=== PATIENT | female | born 1945 | race Caucasian/White ===

== ENCOUNTER 2017-12-05 18:32 | Emergency (ER) | payer MEDICARE, OTHER ==
[~2017-12-05] VITALS: Ht 170.2 cm; Wt 66.7 kg
[~2017-12-05 18:32] MED LIST: ACETAMINOPHEN-1 EAC1 PO; ACYCLOVIR200 MG PO; ATENOLOL50 MG PO; BUSPIRONE HCL5 MG PO; CHANTIX1 EACH PO; CLONAZEPAM2 MG PO; DOLOPHINE HCL10 MG PO; LASIX20 MG PO; LISINOPRIL-HCT1 EACH PO; LISINOPRIL20 MG PO; OMEPRAZOLE20 MG PO; OXYBUTYNIN CHLOR5 MG PO; POTASSIUM CHLO10 MEQ PO; SYNTHROID125 MCG PO
--- NOTE | 2017-12-06 15:27 | EKG ---
[facility] [address] [place] [address] Signed Poor data quality, interpretation may be adversely affected Sinus bradycardia with 1st degree AV block Otherwise normal ECG No previous ECGs available Confirmed by MINNIE PRYOR MD ([id number]) on 12/06/2017 3:27:50 PM Electronically Signed By: MINNIE PRYOR MD 12/06/17 1527 PATIENT NAME: BARON MENDEZ Electrocardiogram DATE OF : 49 PHYSICIAN: MINNIE PRYOR MD REPORT #: [id number] REPORT IS CONFIDENTIAL AND NOT TO BE RELEASED WITHOUT AUTHORIZATION
== END 2017-12-06 00:18 | disposition short-term general hospital (02) ==
LOC: ED 18:32
PROC: 0T9B70Z Drainage of Bladder with Drainage Device, Via Natural or Artificial Opening (ICD-10-PCS; principal; 2017-12-05)
DX: M97.8XXA Periprosthetic fracture around other internal prosthetic joint, initial encounter (principal); I10 Essential (primary) hypertension; F17.200 Nicotine dependence, unspecified, uncomplicated; Z79.899 Other long term (current) drug therapy; W17.89XA Other fall from one level to another, initial encounter
CPT/HCPCS: 51702; 73552; 73560; 73620; 80053; 81001; 85025; 93005; 93010; 96374; 99285; G0480; J3010

== ENCOUNTER 2019-03-07 10:35 | Emergency (ER) | payer MEDICARE, OTHER ==
[~2019-03-07] VITALS: Ht 170.2 cm; Wt 72.6 kg
--- OUTSIDE RECORDS SUMMARY | ~2019-03-07 | XMS | Clinical Summary ---
Demographics + + + | Address | [address] | | | [place] [address] | + + + | Home Phone | | + + + | Preferred Language | Unknown | + + + | Marital Status | Unknown | + + + | Sikhism Affiliation | Unknown | + + + | Race | Unknown | + + + | Ethnic Group | Unknown | + + + Author + + + | Author | [facility] [employer] (Historical as of | | | 12-30-18) | + + + | Organization | [facility] [employer] (Historical as of | | | 12-30-18) | + + + | Address | Unknown | + + + | Phone | Unavailable | + + + Support + + +---------+ + | Name | Relationship | Address | Phone | + + +---------+ + | Tonie Martinez | TIM | Unknown | | + + +---------+ + | Detailed,Message | ECON | Unknown | | + + +---------+ + Care Team Providers + +------+ + | Care Preformer [employer] Name | Role | Phone | + +------+ + | Tyler Guillen MD | PP | | + +------+ + Allergies + + + + + + | Active Allergy | Reactions | Severity | Noted | Comments | | | | | Date | | + + + + + + | Bee Venom | Hives, Swelling | High | 12/10/19 | | | | | | 16 | | + + + + + + | Tetracycline | Nausea and Vomiting | Low | 12/10/19 | | | | | | 16 | | + + + + + + Current Medications + + +-------+---------+------+------+-------+ | Prescription | Sig. | Disp. | Refills | Star | End | Statu | | | | | | t | Date | s | | | | | | Date | | | + + +-------+---------+------+------+-------+ | loperamide | Take 2 mg by mouth 4 | | | | | Activ | | (IMODIUM A-D) 2 MG | (four) times daily | | | | | e | | tablet | as needed for | | | | | | | | Diarrhea. | | | | | | + + +-------+---------+------+------+-------+ | furosemide (LASIX) | Take 20 mg by mouth | | | | | Activ | | 20 MG tablet | daily as needed. | | | | | e | + + +-------+---------+------+------+-------+ | | Take 1 tablet by | | | | | Activ | | HYDROcodone-acetamin | mouth every 6 (six) | | | | | e | | ophen (NORCO) 10-325 | hours as needed for | | | | | | | MG per tablet | Pain. | | | | | | + + +-------+---------+------+------+-------+ | levothyroxine | Take 150 mcg by | | | | | Activ | | (SYNTHROID) 150 MCG | mouth every morning | | | | | e | | tablet | before breakfast. | | | | | | + + +-------+---------+------+------+-------+ | | Take 1 tablet by | | | | | Activ | | lisinopril-hydrochlo | mouth daily. | | | | | e | | rothiazide | | | | | | | | (ZESTORETIC) 20-12.5 | | | | | | | | MG per tablet | | | | | | | + + +-------+---------+------+------+-------+ | oxybutynin | Take 10 mg by mouth | | | | | Activ | | (DITROPAN-XL) 10 MG | 2 (two) times daily. | | | | | e | | 24 hr tablet | | | | | | | + + +-------+---------+------+------+-------+ | oxycodone (OXY-IR) | Take 5 mg by mouth | | | | | Activ | | 5 MG capsule | every 8 (eight) | | | | | e | | | hours as needed. | | | | | | + + +-------+---------+------+------+-------+ | omeprazole | Take 20 mg by mouth | | | | | Activ | | (PRILOSEC) 20 MG | every morning before | | | | | e | | capsule | breakfast. | | | | | | + + +-------+---------+------+------+-------+ | traMADol (ULTRAM) | Take 50 mg by mouth | | | | | Activ | | 50 MG tablet | every 8 (eight) | | | | | e | | | hours as needed for | | | | | | | | Pain. | | | | | | + + +-------+---------+------+------+-------+ | clonazePAM | Take 1 mg by mouth 3 | | | | | Activ | | (KLONOPIN) 1 MG | (three) times daily | | | | | e | | tablet | as needed for | | | | | | | | Anxiety. | | | | | | + + +-------+---------+------+------+-------+ | EPINEPHrine 0.3 | Inject 0.3 mg into | | | | | Activ | | MG/0.3ML | the muscle as | | | | | e | | auto-injector | needed. | | | | | | + + +-------+---------+------+------+-------+ | Potassium Chloride | Take 1 tablet by | | | | | Activ | | (KCL-20 PO) | mouth daily. | | | | | e | + + +-------+---------+------+------+-------+ | buprenorphine | Place 2 mg under the | | | | | Activ | | (SUBUTEX) 2 MG SUBL | tongue every 6 | | | | | e | | | (six) hours as | | | | | | | | needed. | | | | | | + + +-------+---------+------+------+-------+ | ondansetron | Take 8 mg by mouth | | | | | Activ | | (ZOFRAN ODT) 8 MG | every 8 (eight) | | | | | e | | disintegrating | hours as needed for | | | | | | | tablet | Nausea or Vomiting. | | | | | | + + +-------+---------+------+------+-------+ | varenicline | Take by mouth 2 | | | | | Activ | | (CHANTIX STARTING | (two) times daily. | | | | | e | | MONTH CECIL) 0.5 MG X | Take one 0.5mg | | | | | | | 11 & 1 MG X 42 | tablet by mouth once | | | | | | | tablet | daily for 3 days, | | | | | | | | then increase to one | | | | | | | | 0.5mg tablet twice | | | | | | | | daily for 3 days, | | | | | | | | then increase to one | | | | | | | | 1mg tablet twice | | | | | | | | daily. | | | | | | + + +-------+---------+------+------+-------+ Active Problems + + + | Problem | Noted Date | + + + | Precordial pain | 12/10/2015 | + + + + + | Last Assessment & Plan: Chest pain. 70yo WF, with | | chest pain, approximately 2 years duration. She describes this | | as a severe retrosternal discomfort, usually lasting around 5 | | minutes, associated shortness of breath and palpitations, but no | | nausea or diaphoresis. Increasing in frequency and severity, | | random in occurrence. She is modestly active, and physical | | activity is not consistent aggravating or symptoms. She has | | severe DJD, chronic pain issues on narcotics. Chronic back pain, | | distant right knee replacement, recent left knee replacement. | | She is going through rehabilitation, and plates with the | | assistance of a cane. Her risk factors include a history of | | hypertension and tobacco use. There is no significant family | | history of heart disease, diabetes, or hyperlipidemia. There is | | no prior history of myocardial infarction, congestive heart | | failure, congenital heart disease, or rheumatic heart disease. | | She is single, lives in the boarding house. Recent labs | | reviewed. Today's ECG is benign. She is not able to walk on a | | treadmill, we've requested a pharmacological nuclear perfusion | | study to assess her chest pain.ECG, 12/10/2015: sinus bradycardia, | | 52bpm, otherwise NML ECG. | + + + + + | HTN (hypertension) | 12/10/2015 | + + + + + | Last Assessment & Plan: Hypertension, controlled, continue | | current meds at current dose (lisinopril HCT). Labs reviewed | | with patient.Lab, 12/09/2015: T Chol: 111, LDL-Chol: 46, HDL-Chol: | | 25, Tri Liver enzymes NML, K: | | 3.4, BUN/Cr: 24/1.4 (GFR 39), glu: 106 | | TSH: 0.293, free T3: 4.08, WBC: 5.5, H/H: 12.0/35.5, plt: 161, | | ESR: 20 | + + + + + | GERD (gastroesophageal reflux disease) | 12/10/2015 | + + + + + | Last Assessment & Plan: Hx GERD, managed by PCP. | + + + + + | Osteoarthritis | 12/10/2015 | + + + + + | Last Assessment & Plan: Severe DJD, distant history right | | knee replacement, recent left knee replacement. Also history of | | chronic pain issues. | + + +--------+ + | Smoker | 12/10/2015 | +--------+ + + + | Last Assessment & Plan: Long-time smoker, currently a one | | third pack of cigars per day, has tried multiple times to stop | | smoking, but continues to smoke. | + + Family History + + +------+ + | Medical History | Relation | Name | Comments | + + +------+ + | Diabetes type II | Maternal | | | | | Grandmoth | | | | | er | | | + + +------+ + | Heart disease | Mother | | | + + +------+ + | Hypertension | Mother | | | + + +------+ + | Cancer | Sister | | | + + +------+ + | Diabetes type II | Sister | | | + + +------+ + | Heart disease | Sister | | | + + +------+ + | Hypertension | Sister | | | + + +------+ + + +------+ + + | Relation | Name | Status | Comments | + +------+ + + | Father | | | unknown status | | | | (Age | | | | | 81) | | + +------+ + + | Maternal Grandfather | | | unknown status | | | | (Age | | | | | 83) | | + +------+ + + | Maternal Grandmother | | | colitis, DMII | + +------+ + + | Mother | | | heart failure,HTN | | | | (Age | | | | | 83) | | + +------+ + + | Sister | | | pancreatis cancer, DMII,HYperlipidemia | | | | (Age | | | | | 59) | | + +------+ + + Social History + + + +--------+ + | Tobacco Use | Types | Packs/Day | Years | Date | | | | | Used | | + + + +--------+ + | Current Every Day | Cigarettes | | | Started: 05/16/1955 | | Smoker | | | | | + + + +--------+ + + +---+---+---+ | Smokeless Tobacco: | | | | | Never Used | | | | + +---+---+---+ + + +---------+ + | Alcohol Use | Drinks/We | oz/Week | Comments | | | ek | | | + + +---------+ + | No | 0 | 0.0 | | | | Standard | | | | | drinks or | | | | | | | | | | equivalen | | | | | t | | | + + +---------+ + + + + | Sex Assigned at | Date Recorded | | | | + + + | Not on file | | + + + Last Filed Vital Signs + + + + | Vital Sign | Reading | Time Taken | + + + + | Blood Pressure | 130/68 | 12/10/2015 3:18 PM PDT | + + + + | Pulse | 52 | 12/10/2015 3:18 PM PDT | + + + + | Temperature | - | - | + + + + | Respiratory Rate | 17 | 12/10/2015 3:18 PM PDT | + + + + | Oxygen Saturation | 98% | 12/10/2015 3:18 PM PDT | + + + + | Inhaled Oxygen | - | - | | Concentration | | | + + + + | Weight | 69.1 kg (152 lb 4.8 | 12/10/2015 3:18 PM PDT | | | oz) | | + + + + | Height | 170.2 cm (5' 7") | 12/10/2015 3:18 PM PDT | + + + + | Body Mass Index | 23.85 | 12/10/2015 3:18 PM PDT | + + + + Plan of Treatment + + + + + | Health Maintenance | Due Date | Last Done | Comments | + + + + + | Vaccine: Zoster (1 | | | | | of 2) | 8 | | | + + + + + | Vaccine: | | 07/18/2006 | | | Dtap/Tdap/Td (1 - | 7 | | | | Tdap) | | | | + + + + + | DEXA SCAN SCREENING | | | | | | 3 | | | + + + + + | Vaccine: | | | | | Pneumococcal 65+ | 3 | | | | Low/Medium Risk (1 | | | | | of 2 - PCV13) | | | | + + + + + | Vaccine: Influenza | | | | | (#1) | 9 | | | + + + + + Results Not on filefrom Last 3 Months Insurance + +--------+ +--------+-------+ + | Payer | Benefi | Subscriber | Type | Phone | Address | | | t Plan | ID | | | | | | / | | | | | | | Group | | | | | + +--------+ +--------+-------+ + | [place] [employer] | [place]-FAM | [id number] | Medica | | | | FAMILY | ELY | | re | | | | | CARE | | | | | + +--------+ +--------+-------+ + | MEDICAID | MEDICA | [id number] | | | [address] | | | ID | | | | [place] | | | [place] | | | | [address] | + +--------+ +--------+-------+ + + +--------+ +--------+ + + | Guarantor Name | Accoun | Relation to | Date | Phone | Billing Address | | | t Type | Patient | of | | | | | | | | | | + +--------+ +--------+ + + | BARON CHRISTENSEN | Person | Self [birth year] Home: | [address] | | | al/Fam | | 1946 | [phone] [place] [address] | | | ely | | | [phone] | | + +--------+ +--------+ + +
--- OUTSIDE RECORDS SUMMARY | ~2019-03-07 | XMS | Clinical Summary ---
Demographics + + + | Address | [address] | | | [place] [address] | + + + | Home Phone | | + + + | Preferred Language | Unknown | + + + | Marital Status | | + + + | Orthodoxy Affiliation | Unknown | + + + | Race | Unknown | + + + | Ethnic Group | Unknown | + + + Author + + + | Author | [facility] | | | and [place] | + + + | Organization | [facility] | | | and [place] | + + + | Address | Unknown | + + + | Phone | Unavailable | + + + Support + + +---------+ + | Name | Relationship | Address | Phone | + + +---------+ + | Tonie Martinez | TIM | Unknown | | + + +---------+ + | CmChristy | ECON | Unknown | | + + +---------+ + Care Team Providers + +------+ + | Care Brigadier Name | Role | Phone | + +------+ + | Tyler Guillen MD | PCP | | + +------+ + Allergies + + + + + + | Active Allergy | Reactions | Severity | Noted | Comments | | | | | Date | | + + + + + + | Bee Venom | Anaphylaxis | High | 11/28/19 | | | | | | 15 | | + + + + + + | Tetracyclines & | Nausea And Vomiting | Low | 08/21/19 | | | Related | | | 16 | | + + + + + + Medications + + + +---------+------+------+-------+ | Medication | Sig | Dispensed | Refills | Star | End | Statu | | | | | | t | Date | s | | | | | | Date | | | + + + +---------+------+------+-------+ | clonazePAM | 1 mg 3 times daily | | 0 | 05/0 | | Activ | | (KLONOPIN) 1 mg | as needed. Once in | | | 12/02 | | e | | tablet | the morning and once | | | 15 | | | | | in the evening | | | | | | + + + +---------+------+------+-------+ | levothyroxine | 150 mcg. | | 0 | 04/1 | | Activ | | (SYNTHROID, | | | | 9/20 | | e | | LEVOTHROID) 125 mcg | | | | 15 | | | | tablet | | | | | | | + + + +---------+------+------+-------+ | | 1 tablet 2 times | | 1 | 04/2 | | Activ | | lisinopril-hydrochlo | daily. | | | 20 | | e | | rothiazide | | | | 15 | | | | (PRINZIDE,ZESTORETIC | | | | | | | | ) 20-12.5 MG per | | | | | | | | tablet | | | | | | | + + + +---------+------+------+-------+ | omeprazole | Take 20 mg by mouth | | 0 | 05/0 | | Activ | | (PRILOSEC) 20 mg | Daily. | | | 1/20 | | e | | capsule | | | | 15 | | | + + + +---------+------+------+-------+ | oxybutynin | Take 10 mg by mouth | | 0 | 05/0 | | Activ | | (DITROPAN) 5 mg | 2 times daily. | | | 7/20 | | e | | tablet | | | | 15 | | | + + + +---------+------+------+-------+ | docusate sodium | Take 200 mg by mouth | 60 | 0 | 04/1 | | Activ | | (COLACE) 100 MG | 2 times daily. | capsule | | 1/20 | | e | | capsule | | | | 16 | | | + + + +---------+------+------+-------+ | clonazePAM | Take 1 tablet by | 60 | 0 | 04/1 | | Activ | | (KLONOPIN) 1 mg | mouth 3 times daily | tablet | | 1/20 | | e | | tablet | as needed. | | | 16 | | | + + + +---------+------+------+-------+ | traMADol (ULTRAM) | Take 1 tablet by | 40 | 0 | 06/2 | | Activ | | 50 mg tablet | mouth every 8 hours | tablet | | 0/20 | | e | | | as needed for Pain | | | 16 | | | | | (1-2 tablets). | | | | | | + + + +---------+------+------+-------+ | furosemide (LASIX) | | | 0 | 05/3 | | Activ | | 20 mg tablet | | | | 0/20 | | e | | | | | | 16 | | | + + + +---------+------+------+-------+ | | | | 0 | 06/1 | | Activ | | acetaminophen-codein | | | | 5/20 | | e | | e (TYLENOL #3) | | | | 16 | | | | 300-30 mg per tablet | | | | | | | + + + +---------+------+------+-------+ | oxyCODONE | Take 1 tablet by | 50 | 0 | 07/1 | | Activ | | (ROXICODONE) 5 mg | mouth every 8 hours | tablet | | 8/20 | | e | | tabletIndications: | as needed for Pain. | | | 16 | | | | Left knee pain, | | | | | | | | unspecified | | | | | | | | chronicity, Status | | | | | | | | post total left knee | | | | | | | | replacement | | | | | | | + + + +---------+------+------+-------+ | | Take 1-2 tablets by | 60 | 0 | 11/13 | | Activ | | HYDROcodone-acetamin | mouth 2 times daily. | tablet | | 01/02 | | e | | ophen (NORCO) 10-325 | | | | 16 | | | | mg per | | | | | | | | tabletIndications: | | | | | | | | Left knee pain, | | | | | | | | unspecified | | | | | | | | chronicity, Status | | | | | | | | post total left knee | | | | | | | | replacement | | | | | | | + + + +---------+------+------+-------+ | loperamide | Take 2 mg by mouth. | | 0 | | | Activ | | (IMODIUM A-D) 2 MG | | | | | | e | | tablet | | | | | | | + + + +---------+------+------+-------+ | acyclovir | | | 0 | 03/2 | | Activ | | (ZOVIRAX) 200 mg | | | | 8/20 | | e | | capsule | | | | 17 | | | + + + +---------+------+------+-------+ | buprenorphine | | | 0 | 03/2 | | Activ | | (SUBUTEX) 8 mg SUBL | | | | 9/20 | | e | | | | | | 17 | | | + + + +---------+------+------+-------+ Active Problems + + + | Problem | Noted Date | + + + | Gastroesophageal reflux disease | 12/10/2015 | + + + + + | Overview: Last Assessment & Plan: | | Hx GERD, managed by PCP. | + + + + + | Hypertension | 12/10/2015 | + + + + + | Overview: Last Assessment & Plan: Hypertension, controlled, | | continue current meds at current dose (lisinopril HCT). Labs | | reviewed with patient.Lab, 12/09/2015: T Chol: 111, LDL-Chol: 46, | | HDL-Chol: 25, Tri Liver enzymes | | NML, K: 3.4, BUN/Cr: 24/1.4 (GFR 39), glu: 106 | | TSH: 0.293, free T3: 4.08, WBC: 5.5, H/H: 12.0/35.5, plt: | | 161, ESR: 20 | + + + + + | Chest pain, precordial | 12/10/2015 | + + + + + | Overview: Last Assessment & Plan: Chest pain. 70yo | | WF, with chest pain, approximately 2 years duration. She | | describes this as a severe retrosternal discomfort, usually | | lasting around 5 minutes, associated shortness of breath and | | palpitations, but no nausea or diaphoresis. Increasing in | | frequency and severity, random in occurrence. She is modestly | | active, and physical activity is not consistent aggravating or | | symptoms. She has severe DJD, chronic pain issues on narcotics. | | Chronic back pain, distant right knee replacement, recent left | | knee replacement. She is going through rehabilitation, and | | plates with the assistance of a cane. Her risk factors include a | | history of hypertension and tobacco use. There is no | | significant family history of heart disease, diabetes, or | | hyperlipidemia. There is no prior history of myocardial | | infarction, congestive heart failure, congenital heart disease, | | or rheumatic heart disease. She is single, lives in the boarding | | house. Recent labs reviewed. Today's ECG is benign. She is | | not able to walk on a treadmill, we've requested a | | pharmacological nuclear perfusion study to assess her chest | | pain.ECG, 12/10/2015: sinus bradycardia, 52bpm, otherwise NCL ECG. | + + + + + | Current smoker | 12/10/2015 | + + + + + | Overview: Last Assessment & Plan: Long-time smoker, currently | | a one third pack of cigars per day, has tried multiple times to | | stop smoking, but continues to smoke. | + + + + + | Primary osteoarthritis of left knee | 08/23/2015 | + + + | Drug dependence | 02/16/2006 | + + + + + | Overview: Overview: | | Now In Remission. | | | | IMO Problem List Replacement - 2016_Regulatory_1 | + + + + + | Hepatitis | 02/16/2006 | + + + + + | Overview: Overview: | | Chronic Hepatitis C. | + + + + + | Osteoarthritis | 02/16/2006 | + + + + + | Overview: Last Assessment & Plan: Severe DJD, distant history | | right knee replacement, recent left knee replacement. Also | | history of chronic pain issues.Overview: Degenerative arthritis | | of both knees;status post jacquelyn arthroplasty in both knees.O | | Problem List Replacement - 2016_Regulatory_1 | | | |IMO Problem List Replacement - 2016_Regulatory_1 | + + + + + | Hypoactive thyroid | 09/06/2005 | + + + | Essential (primary) hypertension | 11/09/2004 | + + + Family History + + +------+ + | Medical History | Relation | Name | Comments | + + +------+ + | Diabetes, NIDDM | Maternal | | | | | Grandmoth | | | | | er | | | + + +------+ + | Heart disease | Mother | | | + + +------+ + | Hypertension | Mother | | | + + +------+ + | Cancer | Sister | | | + + +------+ + | Diabetes, NIDDM | Sister | | | + + +------+ + | Heart disease | Sister | | | + + +------+ + | Hypertension | Sister | | | + + +------+ + | Cancer | Sister | | | + + +------+ + | Diabetes | Sister | | | + + [...] DMII | + +------+ + + | Maternal Grandmother | | | | + +------+ + + | Mother | | | heart failure,HTN | | | | (Age | | | | | 83) | | + +------+ + + | Mother | | | | + +------+ + + | Sister | | | pancreatis cancer, DMII,HYperlipidemia | | | | (Age | | | | | 59) | | + +------+ + + | Sister | | | | + +------+ + + | Sister | | | | + +------+ + + Social History + +-------+ +--------+ + | Tobacco Use | Types | Packs/Day | Years | Date | | | | | Used | | + +-------+ +--------+ + | Current Every Day | | 0.5 | | Quit: 04/02/2015 | | Smoker | | | | | + +-------+ +--------+ + + + | Tobacco Cessation: Ready to Quit: No | + + + + +---------+ + | Alcohol Use [...] on file | | + + + + + + + | Job Start Date | Occupation | Industry | + + + + | Not on file | Not on file | Not on file | + + + + + + + + | Travel History | Travel Start | Travel End | + + + + + + | No recent travel history available. | + + Last Filed Vital Signs + + + + | Vital Sign | Reading | Time Taken | + + + + | Blood Pressure | 130/68 | 12/10/2015 1524 PDT | + + + + | Pulse | 52 | 12/10/2015 1524 PDT | + + + + | Temperature | 36.7 C (98 F) | 11/13/2015 1117 PDT | + + + + | Respiratory Rate | 17 | 12/10/20154 PDT | + + + + | Oxygen Saturation | 94% | 08/25/2015 0749 PDT | + + + + | Inhaled Oxygen | - | - | | Concentration | | | + + + + | Weight | 73 kg (161 lb) | 08/16/2016 1345 PDT | + + + + | Height | 170.2 cm (5' 7") | 08/16/2016 1345 PDT | + + + + | Body Mass Index | 25.22 | 08/16/2016 1345 PDT | + + + + Plan of Treatment + + + + + | Health Maintenance | Due Date | Last Done | Comments | + + + + + | Vaccine: Zoster (1 | | | | | of 2) | 8 | | | + + + + + | Breast Cancer | | | | | Screening | 3 | | | + + [...] | | + + + + + Implants + +--------+--------+ +--------+--------+--------+ | Implanted | Type | Area | Manufacture | Device | Shelf | Model | | | | | r | | Expira | / | | | | | | Identi | tion | Serial | | | | | | fier | Date | / Lot | + +--------+--------+ +--------+--------+--------+ | Miko Bone Palacos-R 40gm - | Generi | Left: | GISSEL - | | 07/31/ | 00-111 | | [id number]: Qty: 1 on | c | Knee | ZIMM | | 2020 | 2-140- | | 08/22/2015 by Juan C Arzola | | | | | | 01 / | | MD Yennifer | | | | | | /[id number] | | | | | | | | 446 | + +--------+--------+ +--------+--------+--------+ | Imp Knee Ptela Polyeth 35mm - | Generi | Left: | GISSEL - | | 06/15/ | 42-540 | | [id number]: Qty: 1 | c | Knee | ZIMM | | 2023 | 0-000- | | on 08/22/2015 by Dariusz, | | | | | | 35 / | | Juan C De Oliveira MD | | | | | | /[id number] | | | | | | | | 176 | + +--------+--------+ +--------+--------+--------+ | Imp Knee Stem Femur Nrw Lt | Generi | Left: | GISSEL - | | 04/14/ | 42-502 | | Sz8 - [id number]: | c | Knee | ZIMM | | 2024 | 0-064- | | Qty: 1 on 08/22/2015 by | | | | | | 01 / | | Juan C Arzola MD | | | | | | /[id number] | | | | | | | | 979 | + +--------+--------+ +--------+--------+--------+ | Imp Knee Tib 5deg Lt Sabino - | Generi | Left: | GISSEL - | | 08/13/ | 42-532 | | [id number]: Qty: 1 on | c | Knee | ZIMM | | 6 | 0-071- | | 08/22/2015 by Juan C Arzola | | | | | | 01 / | | MD Yennifer | | | | | | /[id number] | | | | | | | | 199 | + +--------+--------+ +--------+--------+--------+ | Imp Knee Surf Artc L 10 | Generi | Left: | GISSEL - | | 01/13/ | [id number] | | 8-11ab - [id number]: | c | Knee | ZIMM | | 2020 | [id number] | | Qty: 1 on 08/22/2015 by | | | | | | / | | Juan C Arzola MD | | | | | | /[id number] | | | | | | | | 730 | + +--------+--------+ +--------+--------+--------+ | Screw Hex 2.5x25mm - | Screw | Left: | GISSEL - | | 07/13/ | 42-509 | | [id number]: Qty: 1 on | | Knee | ZIMM | | 2025 | - | | 08/22/2015 by Juan C Arzola | | | | | | 25 / | | MD Yennifer | | | | | | /[id number] | | | | | | | | 085 | + +--------+--------+ +--------+--------+--------+ Results Not on filefrom Last 3 Months Insurance + +--------+ +--------+ +---------+--------+ | Payer | Benefi | Subscriber | Effect | Phone | Address | Type | | | t Plan | ID | dustin | | | | | | / | | Dates | | | | | | Group | | | | | | + +--------+ +--------+ +---------+--------+ | MEDICARE | MEDICA | [id number] | 05/16/19 | [phone] | | Medica | | | RE | | 17-Pre | 5 | | re | | | PART A | | sent | | | | | | AND B | | | | | | + +--------+ +--------+ +---------+--------+ | [place]ID [place] | MEDICA | [id number] | | [phone] | | Medica | | | ID | | 014-Pr | 2 | | id | | | [place] | | esent | | | | + +--------+ +--------+ +---------+--------+ + +--------+ +--------+ + + | Guarantor Name | Accoun | Relation to | Date | Phone | Billing Address | | | t Type | Patient | of | | | | | | | | | | + +--------+ +--------+ + + | Sol Christensen | Person | Self | [birth year] | [address] | | [place] | [place] | | 1946 | [phone] | [place] [address] | | | ely | | | 9 (Home) | | + +--------+ +--------+ + + Advance Directives Patient has advance care planning documents, and code status on file. For more information, please contact:[facility] [place] [address] + + + + + | Code Status | Date | Date | Comments | | | Activated | Inactivated | | + + + + + | Full Code | 08/22/2015 | 08/25/2015 | | | | 13:14 | 16:10 | | + + + + +
--- OUTSIDE RECORDS SUMMARY | ~2019-03-07 | XMS | Clinical Summary ---
Demographics + + + | Address | [address] | | | [place] [address] | + + + | Home Phone | | + + + | Preferred Language | Unknown | + + + | Marital Status | | + + + | Moravian Affiliation | Unknown | + + + | Race | Unknown | + + + | Ethnic Group | Unknown | + + + Author + + + | Author | [facility] | | | and [place] | + + + | Organization | [facility] | | | and [place] | + + + | Address | Unknown | + + + | Phone | Unavailable | + + + Support + + +---------+ + | Name | Relationship | Address | Phone | + + +---------+ + | Tonie Martniez | TIM | Unknown | | + + +---------+ + | CmChristy | ECON | Unknown | | + + +---------+ + Care Team Providers + +------+ + | Care Control Equipment Electrician Name | Role | Phone | + [...] | pain.ECG, 12/10/2015: sinus bradycardia, 52bpm, otherwise MTL ECG. | + + + + + [...] | | 07/31/ | 00-111 | | [id number]: Qty: 1 on | c | Knee | ZIMM | | 2020 | 2-140- | | 08/22/2015 by Juan C Arzola | | | | | | 01 / | | MD Yennifer | | | | | | /[id number] | | | | | | | | 446 | + +--------+--------+ +--------+--------+--------+ | Imp Knee Ptela Polyeth 35mm - | Generi | Left: | GISSEL - | | 06/15/ | 42-540 | | [id number]: Qty: 1 | c | Knee | ZIMM | | 2023 | 0-000- | | on 08/22/2015 by Dariusz, | | | | | | 35 / | | Juan C De Oliveira MD | | | | | | /[id number] | | | | | | | | 176 | + +--------+--------+ +--------+--------+--------+ | Imp Knee Stem Femur Nrw Lt | Generi | Left: | GISSEL - | | 04/14/ | 42-502 | | Sz8 - [id number]: | c | Knee | ZIMM | | 2024 | 0-064- | | Qty: 1 on 08/22/2015 by | | | | | | 01 / | | Juan C Arzola MD | | | | | | /[id number] | | | | | | | | 979 | + +--------+--------+ +--------+--------+--------+ | Imp Knee Tib 5deg Lt Sabino - | Generi | Left: | GISSEL - | | 08/13/ | 42-532 | | [id number]: Qty: 1 on | c | Knee | ZIMM | | 6 | 0-071- | | 08/22/2015 by Juan C Arzola | | | | | | 01 / | | MD Yennifer | | | | | | /[id number] | | | | | | | | 199 | + +--------+--------+ +--------+--------+--------+ | Imp Knee Surf Artc L 10 | Generi | Left: | GISSEL - | | 01/13/ | [id number] | | 8-11ab - [id number]: | c | Knee | ZIMM | | 2020 | [id number] | | Qty: 1 on 08/22/2015 by | | | | | | / | | Juan C Arzola MD | | | | | | /[id number] | | | | | | | | 730 | + +--------+--------+ +--------+--------+--------+ | Screw Hex 2.5x25mm - | Screw | Left: | GISSEL - | | 07/13/ | 42-509 | | [id number]: Qty: 1 on | | Knee | ZIMM | | 2025 | - | | 08/22/2015 by Juan C Arzola | | | | | | 25 / | | MD Yennifer | | | | | | /[id number] | | | | | | | [...] +--------+ +---------+--------+ | MEDICARE | MEDICA | [id number] | 05/16/19 | [phone] | | Medica | | | RE | | 17-Pre | 5 | | re | | | PART A | | sent | | | | | | AND B | | | | | | + +--------+ +--------+ +---------+--------+ | [place]ICAID [place] | MEDICA | [id number] | | [phone] | | Medica | [...] | | [address] | | [place] | [place] | | 1946 | [phone] | [place] [address] | | | ely | | | 9 (Home) | | + +--------+ +--------+ + + Advance Directives Patient has advance care planning documents, and code status on file. For more information, please contact:[facility] [place] [address] + + + + + | Code Status | Date | Date | Comments | | | Activated | Inactivated | | + + + + + | Full Code | 08/22/2015 | 08/25/2015 | | | | 13:14 | 16:10 | | + + + + +
--- OUTSIDE RECORDS SUMMARY | ~2019-03-07 | XMS | Clinical Summary ---
Demographics + + + | Address | [address] | | | [place] [address] | + + + | Home Phone | | + + + | Preferred Language | Unknown | + + + | Marital Status | Unknown | + + + | Hinduism Affiliation | Unknown | + + + | Race | Unknown | + + + | Ethnic Group | Unknown | + + + Author + + + | Author | [facility] (Historical as of | | | 12-30-18) | + + + | Organization | [facility] (Historical as of | | | 12-30-18) [...] Team Providers + +------+ + | Care Fruit Packer Face And Fill Name | Role | Phone | + [...] | MA - PREMIERCARE | MA-FAM | [id number] | Medica | | | | FAMILY | ELY | | re | | | | | CARE | | | | | + +--------+ +--------+-------+ + | MEDICAID | MEDICA | [id number] | | | [address] | | | ID | | | | [place] | | | [place] | | | | [phone] | + +--------+ +--------+-------+ + + +--------+ [...] | 1946 | [phone] | [place] [address] | | | ely | | [phone] | | + +--------+ +--------+ + +
--- OUTSIDE RECORDS SUMMARY | 2019-03-07 10:38 | XMS ---
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 [place] VISIT COUNT (12 MO.) 1 NOLAN Guido TOTAL 1 NOTE: Visits indicate total known visits. ED/UCC VISIT TRACKING (12 MO.) 03/07/2019 10:36 NOLAN Whyte OR TYPE: Emergency COMPLAINT: - FALL INPATIENT VISIT TRACKING (12 MO.) No inpatient visits to display in this time frame [id number]
[2019-03-07] MEDS ORDERED: RANITIDINE HCL150 MG PO (10:45)
== END 2019-03-07 15:05 | disposition short-term general hospital (02) ==
LOC: ED 10:35
DX: S72.001A Fracture of unspecified part of neck of right femur, initial encounter for closed fracture (principal); W10.9XXA Fall (on) (from) unspecified stairs and steps, initial encounter; I10 Essential (primary) hypertension; F17.200 Nicotine dependence, unspecified, uncomplicated; Z88.1 Allergy status to other antibiotic agents; Z79.899 Other long term (current) drug therapy
CPT/HCPCS: 51702; 73502; 81001; 99284-25; 99406; J1170; J2405

== ENCOUNTER 2019-10-27 17:42 | Inpatient (IN) | payer MEDICARE, OTHER ==
[~2019-10-27] VITALS: Ht 170.2 cm; Wt 78.2 kg
[~2019-10-27 17:42] MED LIST changes: +RANITIDINE HCL150 MG PO
--- OUTSIDE RECORDS SUMMARY | 2019-10-27 17:46 | XMS ---
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 EColin VISIT COUNT (12 MO.) 2 [facility] [place] TOTAL 2 NOTE: Visits indicate total known visits. ED/UCC VISIT TRACKING (12 MO.) 10/27/2019 17:43 [facility] [place] TYPE: Emergency COMPLAINT: - FALL 03/07/2019 10:36 [facility] [place] TYPE: Emergency COMPLAINT: - FALL DIAGNOSES: - Fall (on) (from) unspecified stairs and steps, initial encoun - Pain in right hip - Other movement assembler (current) drug therapy - Allergy status to other antibiotic agents status - Fracture of unspecified part of neck of right femur, initial - Nicotine dependence, cigarettes, uncomplicated - Essential (primary) hypertension - Nicotine dependence, unspecified, uncomplicated INPATIENT VISIT TRACKING (12 MO.) [facility] DIAGNOSES: - femoral neck fracture [email or web address]
[2019-10-27] MEDS ORDERED: KEFLEX500 MG PO (20:09)
[2019-10-28] MEDS ORDERED: BUPRENORPHINE HC8 MG SL (08:13)
[2019-10-28] MEDS ORDERED: DULOXETINE HCL40 MG PO (08:14)
[2019-10-28] MEDS ORDERED: CLONAZEPAM0.5 MG PO (08:14)
[2019-10-28] MEDS ORDERED: LEVOTHYROXINE50 MCG PO (08:15)
[2019-10-28] MEDS ORDERED: PROMETHAZINE12.5 M1 PO (08:16)
--- NOTE | 2019-10-28 11:40 | EKG ---
[facility] [address] [place] [address] Signed Normal sinus rhythm Anterior infarct , age undetermined Abnormal ECG When compared with ECG of 05-DEC-2017 18:43, ID interval has decreased Nonspecific T wave abnormality, worse in Inferior leads Nonspecific T wave abnormality now evident in Lateral leads Confirmed by MINNIE PRYOR MD ([id number]) on 10/28/2019 11:40:39 AM Electronically Signed By: MINNIE PRYOR MD 10/28/19 1140 PATIENT NAME: BARON MENDEZ Electrocardiogram DATE OF : 49 PHYSICIAN: MINNIE PRYOR MD REPORT #: [id number] REPORT IS CONFIDENTIAL AND NOT TO BE RELEASED WITHOUT AUTHORIZATION
[2019-10-28] MEDS ORDERED: DULOXETINE HCL30 MG PO (14:28)
[2019-10-30] MEDS ORDERED: OXYCODONE HCL5 MG PO (11:28)
[2019-10-30] MEDS ORDERED: NICOTINE PATCH1 EAC1 TD (11:28)
[2019-10-30] MEDS ORDERED: TYLENOL EXTRA500 MG PO (11:30)
[2019-10-30] MEDS ORDERED: DOK PLUS TABLE1 EACH PO (11:30)
[2019-10-30] MEDS ORDERED: CLONAZEPAM0.5 MG PO (11:30)
[2019-10-30] MEDS ORDERED: LIDOCAINE1 EACH TD (11:31)
[2019-10-30] MEDS ORDERED: OXYBUTYNIN CHLOR5 M1 PO (11:31)
[2019-10-30] MEDS ORDERED: POLYETHYLENE GL17 GM PO (11:31)
[2019-10-30] MEDS ORDERED: FAMOTIDINE20 MG PO (11:31)
== END 2019-10-30 13:40 | DRG 536 ==
LOC: ED 17:42 → MS 23:26
PROVIDERS: ADMIT Internal Medicine
DX: S32.82XA Multiple fractures of pelvis without disruption of pelvic ring, initial encounter for closed fracture (principal); F11.20 Opioid dependence, uncomplicated; I10 Essential (primary) hypertension; K21.9 Gastro-esophageal reflux disease without esophagitis; E03.9 Hypothyroidism, unspecified; B18.2 Chronic viral hepatitis C; F17.210 Nicotine dependence, cigarettes, uncomplicated; F41.0 Panic disorder [episodic paroxysmal anxiety]; Z20.828 Contact with and (suspected) exposure to other viral communicable diseases; W18.30XA Fall on same level, unspecified, initial encounter; Y92.000 Kitchen of unspecified non-institutional (private) residence as the place of occurrence of the external cause; Z79.899 Other long term (current) drug therapy; Z88.1 Allergy status to other antibiotic agents
CPT/HCPCS: 51702; 73502; 80053; 81001; 82550; 83735; 84484; 85025; 87521; 87522; 93005; 93010; 97162; 97165; 99284-25; 99406; C9803; J1170; J1650; J1885; J3480; U0002

== ENCOUNTER 2020-08-18 21:29 | Emergency (ER) | payer MEDICARE, OTHER ==
[~2020-08-18] VITALS: Ht 170.2 cm; Wt 79.0 kg
[~2020-08-18 21:29] MED LIST changes: +BUPRENORPHINE HC8 MG SL; +CLONAZEPAM0.5 MG PO; +DOK PLUS TABLE1 EACH PO; +DULOXETINE HCL30 MG PO; +DULOXETINE HCL40 MG PO; +FAMOTIDINE20 MG PO; +KEFLEX500 MG PO; +LEVOTHYROXINE50 MCG PO; +LIDOCAINE1 EACH TD; +NICOTINE PATCH1 EAC1 TD; +OXYBUTYNIN CHLOR5 M1 PO; +OXYCODONE HCL5 MG PO; +POLYETHYLENE GL17 GM PO; +PROMETHAZINE12.5 M1 PO; +TYLENOL EXTRA500 MG PO
--- OUTSIDE RECORDS SUMMARY | 2020-08-18 21:32 | XMS ---
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 EColin VISIT COUNT (12 MO.) 2 NOLAN Guido TOTAL 2 NOTE: Visits indicate total known visits. ED/UCC VISIT TRACKING (12 MO.) 08/18/2020 21:29 [facility] [place] TYPE: Emergency COMPLAINT: - MOUTH PROBLEM 10/27/2019 17:43 [facility] [place] TYPE: Emergency COMPLAINT: - PELVIC FX INPATIENT VISIT TRACKING (12 MO.) 10/28/2019 01:06 [facility] [place] TYPE: Medical Surgical COMPLAINT: - PELVIC FX DIAGNOSES: - Contact with and (suspected) exposure to other viral communicable diseases - Nicotine dependence, cigarettes, uncomplicated - Fall on same level, unspecified, initial encounter - Essential (primary) hypertension - Opioid dependence, uncomplicated - Allergy status to other antibiotic agents - Nicotine dependence, cigarettes, uncomplicated - Chronic viral hepatitis C - Panic disorder [episodic paroxysmal anxiety] - Hypothyroidism, unspecified - Other assisted (current) drug therapy - Hypothyroidism, unspecified - Kitchen of unspecified non-institutional (private) residence as the place of occurrence of the external cause - Opioid dependence, uncomplicated - Kitchen of unspecified non-institutional (private) residence as the place of occurrence of the external cause - Allergy status to other antibiotic agents - Other assisted (current) drug therapy - Multiple fractures of pelvis without disruption of pelvic ring, initial encounter for closed fracture - Fall on same level, unspecified, initial encounter - Contact with and (suspected) exposure to other viral communicable diseases - Chronic viral hepatitis C - Gastro-esophageal reflux disease without esophagitis - Gastro-esophageal reflux disease without esophagitis - Essential (primary) hypertension - Panic disorder [episodic paroxysmal anxiety] [email or web address]
== END 2020-08-18 22:45 | disposition home or self-care (01) ==
LOC: ED 21:29
DX: B00.1 Herpesviral vesicular dermatitis (principal); I10 Essential (primary) hypertension; F17.200 Nicotine dependence, unspecified, uncomplicated; Z85.42 Personal history of malignant neoplasm of other parts of uterus; Z88.1 Allergy status to other antibiotic agents; Z79.899 Other long term (current) drug therapy
CPT/HCPCS: 99282